=== PATIENT | male | born 1940 | race Caucasian/White ===

== ENCOUNTER 2017-03-10 13:46 | Inpatient (IN) | payer OTHER ==
[~2017-03-10] VITALS: Ht 172.7 cm; Wt 70.3 kg
[~2017-03-10 13:46] MED LIST: CEPHALEXIN500 M1 PO; COZAAR25 MG; GLIPIZIDE10 MG; GLUCOPHAGE XR500 MG; TAMS0.4C
[2017-03-20] MEDS ORDERED: AMLODIPINE BESYL5 MG PO (13:36)
[2017-03-20] MEDS ORDERED: GUAIFENESI100 MG/52 PO (13:36)
[2017-03-20] MEDS ORDERED: LASIX20 MG PO (13:36)
[2017-03-20] MEDS ORDERED: AMOX1TAB5 PO (13:36)
[2017-03-20] MEDS ORDERED: TERAZOSIN HCL5 MG PO (13:36)
[2017-03-20] MEDS ORDERED: TAMSULOSIN HCL0.4 MG PO (13:36)
[2017-03-20] MEDS ORDERED: INTEGRA PLUS C1 EACH PO (13:36)
[2017-03-20] MEDS ORDERED: Coreg 6.25MG TABLET PO (13:36)
== END 2017-03-20 15:02 | disposition home or self-care (01) | DRG 602 ==
LOC: ER 13:46 → SEC-K 22:28 → MEDJ 22:28
PROC: B44HZZZ Ultrasonography of Bilateral Lower Extremity Arteries (ICD-10-PCS; principal; 2017-03-10)
PROC: B54DZZZ Ultrasonography of Bilateral Lower Extremity Veins (ICD-10-PCS; 2017-03-10)
PROC: BQ3MY0Z Magnetic Resonance Imaging (MRI) of Left Foot using Other Contrast, Unenhanced and Enhanced (ICD-10-PCS; 2017-03-11)
PROC: BQ3 Imaging, Non-Axial Lower Bones, Magnetic Resonance Imaging (MRI) (ICD-10-PCS; 2017-03-17)
PROC: BW24ZZZ Computerized Tomography (CT Scan) of Chest and Abdomen (ICD-10-PCS; 2017-03-18)
PROC: 3E0F7GC Introduction of Other Therapeutic Substance into Respiratory Tract, Via Natural or Artificial Opening (ICD-10-PCS; 2017-03-18)
DX: L03.116 Cellulitis of left lower limb (principal); J18.9 Pneumonia, unspecified organism; L97.528 Non-pressure chronic ulcer of other part of left foot with other specified severity; N17.8 Other acute kidney failure; M86.172 Other acute osteomyelitis, left ankle and foot; J90 Pleural effusion, not elsewhere classified; B37.89 Other sites of candidiasis; L03.115 Cellulitis of right lower limb; E11.621 Type 2 diabetes mellitus with foot ulcer; I10 Essential (primary) hypertension; N40.0 Benign prostatic hyperplasia without lower urinary tract symptoms; E86.0 Dehydration; E11.65 Type 2 diabetes mellitus with hyperglycemia; L02.415 Cutaneous abscess of right lower limb; E11.69 Type 2 diabetes mellitus with other specified complication; B95.61 Methicillin susceptible Staphylococcus aureus infection as the cause of diseases classified elsewhere; D64.89 Other specified anemias; B96.1 Klebsiella pneumoniae [K. pneumoniae] as the cause of diseases classified elsewhere; Z16.12 Extended spectrum beta lactamase (ESBL) resistance
CPT/HCPCS: 73722; 73725

== ENCOUNTER 2017-08-18 09:35 | Emergency (ER) | payer OTHER ==
[~2017-08-18] VITALS: Ht 172.7 cm; Wt 70.3 kg
[~2017-08-18 09:35] MED LIST changes: +AMLODIPINE BESYL5 MG PO; +AMOX1TAB5 PO; +Coreg 6.25MG TABLET PO; +GUAIFENESI100 MG/52 PO; +INTEGRA PLUS C1 EACH PO; +LASIX20 MG PO; +TAMSULOSIN HCL0.4 MG PO; +TERAZOSIN HCL5 MG PO
[2017-08-18] MEDS ORDERED: TAMS0.4C (10:03)
[2017-08-18] MEDS ORDERED: ASA81 MG (10:03)
[2017-08-18] MEDS ORDERED: CILOSTAZOL50 MG (10:03)
[2017-08-18] MEDS ORDERED: IRON 100 PLUS1 EACH (10:04)
== END 2017-08-18 14:42 | disposition home or self-care (01) ==
LOC: ER 09:35
DX: G25.2 Other specified forms of tremor (principal)

== ENCOUNTER 2019-03-08 19:44 | Emergency (ER) | payer OTHER ==
[~2019-03-08] VITALS: Ht 172.7 cm; Wt 71.7 kg
[~2019-03-08 19:44] MED LIST changes: +ASA81 MG; +CILOSTAZOL50 MG; +IRON 100 PLUS1 EACH
[2019-03-08] MEDS ORDERED: BAYER THERAPY325 MG PO (20:18)
[2019-03-08] MEDS ORDERED: LOSARTAN POTASS25 MG PO (20:19)
== END 2019-03-08 22:09 | disposition home or self-care (01) ==
LOC: ER 19:44
DX: E11.649 Type 2 diabetes mellitus with hypoglycemia without coma (principal)